=== PATIENT | female | born 1960 ===

== ENCOUNTER 2016-11-02 09:36 | Emergency (ER) | payer MEDICAID, OTHER ==
--- NOTE | 2016-11-02 10:37 | C.PDOC ---
History Of Present Illness 55 y/o female presents to the ED with complaints of RUQ pain radiating down to RLQ intermittently for the past month. 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 Pt denies nausea, vomiting, diarrhea, urinary symptoms, hematochezia or any other complaints. PSHx . PMD Chaney. Of note, pt's BP is noted to be elevated, states that her pmd recently dx her with HTN 2 months ago, she was rx HCTZ, took for 3 days but did not like the side effect and d/c the medication on her own and since then has not f/u with her pmd regarding her BP. Denies any headache, dizziness or cp. PMD E Chaney Time Seen by Provider: 11/02/16 09:47 Chief Complaint (Nursing): Abdominal Pain History Per: Patient History/Exam Limitations: no limitations Onset/Duration Of Symptoms: Days, Intermittent Episodes Current Symptoms Are (Timing): Still Present Severity: Moderate Location Of Pain/Discomfort: RUQ Radiation Of Pain To:: Other (RLQ) Quality Of Discomfort: "Pain" Associated Symptoms: denies: Fever, Chills, Nausea, Vomiting, Diarrhea, Urinary Symptoms Exacerbating Factors: Movement Alleviating Factors: None Recent travel outside of the [place]: No Past Medical History Reviewed: Historical Data, Nursing Documentation, Vital Signs Vital Signs: Last Vital Signs Temp 98.0 F 11/02/16 12:08 Pulse 72 11/02/16 12:08 Resp 16 11/02/16 12:08 BP 152/105 H 11/02/16 12:08 Pulse Ox 97 11/02/16 12:21 - Medical History PMH: HTN, Hypercholesterolemia Family History: States: Unknown Family Hx - Social History Hx Alcohol Use: No Hx Substance Use: No - Immunization History Hx Tetanus Toxoid Vaccination: No Hx Influenza Vaccination: Yes Hx Pneumococcal Vaccination: No Review Of Systems Except As Marked, All Systems Reviewed And Found Negative. Constitutional: Negative for: Fever, Chills Cardiovascular: Negative for: Chest Pain Respiratory: Negative for: Shortness of Breath Gastrointestinal: Positive for: Abdominal Pain. Negative for: Nausea, Vomiting , Diarrhea, Hematochezia Genitourinary: Negative for: Dysuria, Frequency, Hematuria Physical Exam - Physical Exam Appears: Non-toxic, No Acute Distress Skin: Warm, Dry, No Rash Head: Atraumatic, Normacephalic Chest: Symmetrical Cardiovascular: Rhythm Regular, No Murmur Respiratory: Normal Breath Sounds, No Rales, No Rhonchi, No Wheezing Gastrointestinal/Abdominal: Normal Exam, Soft, No Tenderness, No Distention, Other (negative Greco's sign) Back: No CVA Tenderness Extremity: Bilateral: Atraumatic Neurological/Psych: Oriented x3, Normal Speech, Normal Cognition ED Course And Treatment - Laboratory Results Result Diagrams: 11/02/16 10:56 11/02/16 10:56 O2 Sat by Pulse Oximetry: 97 (room air) Pulse Ox Interpretation: Normal - CT Scan/US US abdomen Other Rad Studies (CT/US): Read By Radiologist, Radiology Report Reviewed CT/US Interpretation: Accession No. : [id number]. Patient Name / ID : LETICIA KHNA / [id number]. Exam Date : 11/02/2016 11:21:56 ( Approved ). Study Comment : Sex / Age : F / 55Y. Creator : Sharron Rust MD. Dictator : Sharron Rust MD. Machine Riveter : Heel Cementer : Sharron Rust MD. Approver2 : Report Date : 11/02/2016 11:36:51. My Comment : . HISTORY: RUQ pain. COMPARISON: None available. TECHNIQUE: Sonographic evaluation of the abdomen. FINDINGS: LIVER: Measures 14.3 cm in sagittal dimension. Echogenic liver may be seen in setting of hepatic parenchymal disease or fatty infiltration. No focal hepatic mass identified. The main portal vein appears patent with normal directional flow. No intrahepatic bile duct dilatation. GALLBLADDER: Gallstones. No gallbladder wall thickening. Negative sonographic Greco's sign as assessed by the resource forester. COMMON BILE DUCT: Measures 2 mm. PANCREAS: Not well visualized. RIGHT KIDNEY: Measures 9.6 x 3.9 x 5.0 cm. No obstructing calculus or hydronephrosis identified. LEFT KIDNEY: Measures 10.0 x 4.5 x 5.3 cm. No obstructing calculus or hydronephrosis identified. SPLEEN: Measures approximately 9.8 cm. AORTA: Limited views appear unremarkable. IVC: Limited views appear unremarkable. OTHER FINDINGS: None. IMPRESSION: Echogenic liver may be seen in setting of hepatic parenchymal disease or fatty infiltration. Cholelithiasis. Medical Decision Making Medical Decision Makin5 y/o female presents to the ED with complaints of RUQ pain radiating down to RLQ intermittently for the past month. Differential diagnosis include biliary colic, dyspepsia, renal colic Plan: labs, UA, US abdomen Labs are wnl. US abd shows (+) gallstones with (-) evidence of acute cholecystitis. On re-evaluation, pt is resting comfortably in bed in no acute distress. Reports no abdominal pain at this time, also denies any CP, headache or dizziness. Repeat BP 158/105. On exam, lungs clear, cardiac RRR, abdomen remains soft with no tenderness, no guarding or rebound, negative Greco's sign , repeat neuro exam shows no focal findings. Pt advised to f/u with her pmd in 2 days without fail for further evaluation regarding her BP. Given referral to a general surgeon and advised to f/u regarding her abnormal US finding of gallstones. Return to the ER at any time for any new or worsening symptoms. Disposition - Disposition Referrals: Marshall Hidalgo MD [Staff Provider] - Disposition: HOME/ ROUTINE Disposition Time: 11:30 Condition: STABLE Additional Instructions: Follow up with pmd in 2 days without fail for further evaluation regarding elevated BP. Referral to a general surgeon provided and must follow up without fail regarding her abnormal US finding of gallstones. Return to the ER at any time for any new or worsening symptoms. 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 - Scribe Statement The provider has reviewed the documentation as recorded by the Scribe Lenard Noel All medical record entries made by the Lalo were at my direction and personally dictated by me. I have reviewed the chart and agree that the record accurately reflects my personal performance of the history, physical exam, medical decision making, and the department course for this patient. I have also personally directed, reviewed, and agree with the discharge instructions and disposition.
[2016-11-02 11:01] LABS: BASO # 0.1 K/uL (0.0-0.2); BASO % 1.1 % (0.0-2.0); EOS # 0.1 K/uL (0.0-0.7); EOS % 1.6 % (0.0-4.0); HEMATOCRIT 43.5 % (34.0-47.0); LYMPH # 1.7 K/uL (1.0-4.3); LYMPH % 24.1 % (20.0-40.0); MEAN CELL VOLUME 91.4 fL (81.0-99.0); MEAN CORPUSCULAR HEMOGLOBIN 31.3 pg (27.0-31.0); MEAN CORPUSCULAR HGB CONC 34.2 g/dL (33.0-37.0); MEAN PLATELET VOLUME 8.1 fL (7.2-11.7); MONO # 0.3 K/uL (0.0-0.8); RED CELL DISTRIBUTION WIDTH 13.3 % (11.5-14.5)
[2016-11-02 11:05] LABS: URINE BACTERIA RARE (<OCC); URINE BILIRUBIN NEGATIVE (NEGATIVE); URINE BLOOD 1+ (NEGATIVE); URINE COLOR Yellow (YELLOW); URINE GLUCOSE (UA) NORMAL (Normal); URINE KETONE NEGATIVE (NEGATIVE); URINE LEUKOCYTE ESTERASE NEG Leu/uL (Negative); URINE PROTEIN NEGATIVE (NEGATIVE); URINE UROBILINOGEN NORMAL mg/dL (0.2-1.0); WBC URINE < 1 /hpf (0-5)
[2016-11-02 11:13] LABS: CHLORIDE 103 mmol/L (98-107); RBC URINE 2 /hpf (0-3)
[2016-11-02 11:14] LABS: POTASSIUM 4.2 mmol/L (3.6-5.2); SODIUM 141 mmol/L (132-148)
[2016-11-02 11:16] LABS: ALB/GLOB RATIO 1.1 (1.0-2.1); AST/SGOT 31 U/L (14-36); BILIRUBIN,TOTAL 0.6 mg/dL (0.2-1.3); CARBON DIOXIDE 23 mmol/L (22-30); GFR AFRICAN-AMERICAN > 60; TOTAL PROTEIN 8.1 g/dL (6.3-8.3)
[2016-11-02 11:17] LABS: ALKALINE PHOSPHATASE 85 U/L (38-126); ALT/SGPT 39 U/L (9-52); BLOOD UREA NITROGEN 13 mg/dL (7-17); CALCIUM 9.5 mg/dl (8.6-10.4); GLUCOSE,RANDOM 105 mg/dL (65-105)
--- NOTE | 2016-11-02 11:38 | US ---
HISTORY: RUQ pain COMPARISON: None available. TECHNIQUE: Sonographic evaluation of the abdomen. FINDINGS: LIVER: Measures 14.3 cm in sagittal dimension. Echogenic liver may be seen in setting of hepatic parenchymal disease or fatty infiltration. No focal hepatic mass identified. The main portal vein appears patent with normal directional flow. No intrahepatic bile duct dilatation. GALLBLADDER: Gallstones. No gallbladder wall thickening. Negative sonographic Greco's sign as assessed by the braille and talking books clerk. COMMON BILE DUCT: Measures 2 mm. PANCREAS: Not well visualized. RIGHT KIDNEY: Measures 9.6 x 3.9 x 5.0 cm. No obstructing calculus or hydronephrosis identified. LEFT KIDNEY: Measures 10.0 x 4.5 x 5.3 cm. No obstructing calculus or hydronephrosis identified. SPLEEN: Measures approximately 9.8 cm. AORTA: Limited views appear unremarkable. IVC: Limited views appear unremarkable. OTHER FINDINGS: None. IMPRESSION: Echogenic liver may be seen in setting of hepatic parenchymal disease or fatty infiltration. Cholelithiasis.
[2016-11-02 12:08] VITALS: BP 152/105; PULSE 72; RESP 16; TEMP 98
[2016-11-02 12:20] VITALS: O2SAT 97
== END 2016-11-02 12:25 | disposition home or self-care (01) ==
LOC: C.ER 09:36
DX: K80.50 Calculus of bile duct without cholangitis or cholecystitis without obstruction (principal); R10.11 Right upper quadrant pain; I10 Essential (primary) hypertension